=== PATIENT | female | born 1990 | race Caucasian/White ===

== ENCOUNTER 2018-03-23 09:45 | Emergency (ER) | payer OTHER ==
[~2018-03-23] VITALS: Ht 137.2 cm; Wt 102.1 kg
[2018-03-23] MEDS ORDERED: NEXIUM40 M1 PO (10:21)
[2018-03-23] MEDS ORDERED: METFORMIN HCL500 M3 PO (10:21)
[2018-03-23] MEDS ORDERED: RISPERIDONE1 M1 PO (10:22)
[2018-03-23] MEDS ORDERED: FLUOXETINE HCL20 M2 PO (10:22)
[2018-03-23] MEDS ORDERED: TRAZODONE HCL100 M1 PO (10:23)
[2018-03-23] MEDS ORDERED: RISPERDAL1 M1 PO (10:23)
[2018-03-23] MEDS ORDERED: MONTELUKAST SOD10 M1 PO (10:24)
[2018-03-23] MEDS ORDERED: PENTASA500 M1 PO (10:24)
[2018-03-23] MEDS ORDERED: MELOXICAM15 M1 PO (10:25)
[2018-03-23] MEDS ORDERED: DAILY MULTIPLE1 EACH PO (10:25)
[2018-03-23] MEDS ORDERED: CAL MAG ZINC +1 EACH PO (10:26)
[2018-03-23] MEDS ORDERED: MEDROXYPRO150 MG/11 IM (10:27)
[2018-03-23] MEDS ORDERED: DIVIGEL1 G1 TOP (10:27)
--- NOTE | 2018-03-23 12:46 | RADIOLOGY REPORT ---
EXAMINATION: CR LUMBOSACRAL SPINE. CR RIGHT HIP. CR LEFT HIP. CR LEFT KNEE. CR LEFT ANKLE. CLINICAL INFORMATION: Lower back pain after fall. Presumptive diagnosis of fracture. COMPARISON: None TECHNIQUE: Frontal and lateral views of the lumbar spine and lumbosacral junction. 2 views of the right hip. 2 views of the left hip. 4 views of the left knee. 4 views of the left ankle. FINDINGS: The obtained images are suboptimal due to difficulties with patient cooperation for standard positioning. Lumbosacral spine: The patient is status post posterior spinal decompression and fusion with posterior spinal fusion rods and transpedicular screws seen extending from the lower thoracic spine down to the S3 level with the cranial aspect not fully included. There are 6 lumbar-type nonrib-bearing vertebral bodies. Vertebral detail is limited due to extreme osteopenia. There is discontinuity of the fusion rods at the right L5 level and the left L5-6 level. There is diffuse osteopenia. Mild superior endplate compression deformities are seen at all levels in the lumbar spine, most prominent in the upper lumbar spine. The sacrum is obscured by overlapping stool and gas filled loops of bowel. Left hip: Diffuse osteopenia. No acute fracture or dislocation. No significant degenerative change. Right hip: Diffuse osteopenia. No definite acute fracture or dislocation. Extensive hypertrophic changes seen around the trochanters of the right hip and extending towards the right acetabular roof. Findings likely represent sequelae of previous trauma with secondary degenerative changes. No acute right hip fracture is seen. Left knee: Diffuse osteopenia. Evaluation limited due to nonstandard positioning, degree of osteopenia and overlapping soft tissues. No definite acute fracture or dislocation. No significant degenerative change. No suprapatellar knee joint effusion. Left ankle: There is osteopenia. No acute fracture or dislocation. Ankle mortise symmetric and intact. Overlying diffuse soft tissue swelling noted. IMPRESSION: 1. Limited films due to nonstandard positioning. 2. Diffuse osteopenia. 3. Multiple superior endplate compression deformities in the lumbar spine, likely long-standing. Clinical correlation requested. The patient is status post posterior spinal fusion with discontinuity of the spinal rods in the lower lumbar spine seen as discussed above. Correlation with patient's operative notes is requested. 4. No definite acute fractures of the left hip, left knee, and left ankle. Should symptoms persist, repeat imaging is recommended for reassessment. 5. Extensive hypertrophic changes around the right hip, most likely representing sequelae of previous injury. No definite acute fracture of the right hip.
[2018-03-23 15:48] LABS: ABSOLUTE BASOPHIL COUNT 0.1 /CUMM (0.0-0.2); ABSOLUTE EOSINOPHIL COUNT 0.6 /CUMM (0.0-0.7); ABSOLUTE LYMPH COUNT 3.6 /CUMM (1.2-3.4); ABSOLUTE MONOCYTE COUNT 0.4 /CUMM (0.10-0.60); BASOPHIL % 0.6 % (0.0-2.0); GRANULOCYTE % 59.8 % (42.2-75.2); HEMATOCRIT 38.2 % (37-47); MEAN CORPUSCULAR HGB 28.5 PG (27.0-31.0); MEAN CORPUSCULAR HGB CONC 32.4 G/DL (33.0-37.0); MEAN CORPUSCULAR VOLUME 87.9 FL (81.0-99.0); MEAN PLATELET VOLUME 9.1 FL (7.4-10.4); PLATELET COUNT 257 /CUMM (130-400); RBC DISTRIBUTION WIDTH 15.3 % (11.5-14.5); RED BLOOD CELL CT 4.34 /CUMM (4.20-5.40); WHITE BLOOD CELL COUNT 11.7 /CUMM (4.8-10.8)
--- NOTE | 2018-03-23 16:21 | ED GENERAL ADULT ---
See Addendum History of Present Illness General Chief Complaint: General Adult Stated Complaint: BIBA FOR UNABLE TO AMBULATE Source: patient Exam Limitations: no limitations Vital Signs & Intake/Output Vital Signs & Intake/Output Vital Signs Date Time Temp Pulse Resp B/P B/P Pulse O2 O2 Flow FiO2 Mean Ox Delivery Rate 03/24 1427 99.9 109 18 131/56 91 Room Air 03/24 1346 Room Air 03/24 0645 99.2 75 18 108/59 98 Room Air 03/23 2327 100 19 90 Room Air 03/23 2230 89 18 100/57 97 Room Air 03/23 2011 97 18 118/78 95 Room Air ED Intake and Output 03/24 0000 03/23 1200 Intake Total 0 Output Total Balance 0 Intake, Oral 0 Patient 225 lb Weight Weight Reported by Patient Measurement Method Allergies Coded Allergies: Sulfa (Sulfonamide Antibiotics) (UNKNOWN 03/23/18) egg (UNKNOWN 03/23/18) peanut (UNKNOWN 03/23/18) wheat (UNKNOWN 03/23/18) Reconcile Medications Calcium Carb/D3/Magnesium/Zinc (Víctor Mag Zinc + D Tablet) 333MG-133 TABLET 1 TAB PO DAILY VITAMIN SUPPORT (Reported) Esomeprazole (Nexium) 40 MG CAPSULE.DR 1 CAP PO BID GI (Reported) Estradiol (Divigel) 1 MG/GRAM (0.1 %) GEL.PACKET 1 PAC TOP DAILY HORMONE ( Reported) Fluoxetine HCl 20 MG CAPSULE 3 CAP PO DAILY MENTAL HEALTH (Reported) Medroxyprogesterone Acetate 150 MG/ML SYRINGE 1 ML IM Q3M HORMONE (Reported) Meloxicam 15 MG TABLET 1 TAB PO DAILY PAIN (Reported) Mesalamine (Pentasa) 500 MG CAPSULE.ER 1 TAB PO BID UNKNOWN (Reported) Metformin HCl 500 MG TABLET 1 TAB PO BID DIABETES (Reported) Montelukast Sodium 10 MG TABLET 1 TAB PO DAILY ALLERGIES (Reported) Multivitamin (Daily Multiple Vitamin) 1 EACH TABLET 1 TAB PO DAILY VITAMIN SUPPORT (Reported) Risperidone 1 MG TABLET 1.5 TAB PO QPM MENTAL HEALTH (Reported) Risperidone (Risperdal) 1 MG TABLET 0.5 TAB PO DAILY MENTAL HEALTH (Reported) Trazodone HCl 100 MG TABLET 1 TAB PO QPM SLEEP (Reported) Triage Note: BIBA FROM HOME, S/P FALL YESTERDAY. MOTHER STATES SHE WAS ASSISTING PT TO WHEELCHAIR YESTERDAY, PT SLIPPED AND WAS LOWERED TO GROUND, TODAY UNABLE TO GETT OOB OR BARE WEIGHT. PMH: PRADER-LORENA SYNDROME, LEGALLY BLIND. AWAKE WITH UNTERMITTANT YELLING. MOTHER IS CAREGIVER, STATES BASELINE. ? PAIN IN HIPS. SLIPPED AND FELL, REPORTS Triage Nurses Notes Reviewed? yes Onset: Abrupt Duration: day(s): (1), constant, continues in ED Timing: single episode today Injury Environment: home Severity: moderate, severe Severity Numbers: 7 No Modifying Factors: none LMP (ages 10-50): unknown : No Patient currently breastfeeds: No HPI: 27-year-old female history of PRADER WILLI syndrome presents for evaluation of unable to ambulate. Patient is essentially nonverbal at baseline she normally is able to WALK with assistance and is able to stand and PIVOT. Yesterday while transferring from the bath to the chair patient suddenly developed pain in her left foot and had to be lowered to the ground. There was no direct fall or trauma. This was witnessed by her mother who lowered her to the ground. No head strike. Since then patient has refused to ambulate. She is also not even able to stand. She is not complaining of any pain in one particular area. No fevers no belly pain. She does have chronic back pain status post surgeries. According to the mother who is at bedside her mental status is at baseline. (Dmitriy Kumar) Past History Travel History Traveled to [place] past 21 day No Medical History Any Pertinent Medical History? 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 No (Dmitriy Kumar) Review of Systems Review of Systems Constitutional: Reports: no symptoms. EENTM: Reports: no symptoms. Respiratory: Reports: no symptoms. Cardiovascular: Reports: no symptoms. GI: Reports: no symptoms. Genitourinary: Reports: no symptoms. Musculoskeletal: Reports: back pain, joint pain, muscle pain, muscle stiffness. Skin: Reports: no symptoms. Neurological/Psychological: Reports: no symptoms. Hematologic/Endocrine: Reports: no symptoms. Immunologic/Allergic: Reports: no symptoms. All Other Systems: Reviewed and Negative (Dmitriy Kumar) Physical Exam Physical Exam General Appearance: well developed/nourished, no apparent distress, alert, awake , obese Head: atraumatic, normal appearance Eyes: Bilateral: normal appearance, PERRL, EOMI. Ears, Nose, Throat: hearing grossly normal Neck: normal inspection, supple, full range of motion, no midline tenderness Respiratory: normal breath sounds, chest non-tender, no respiratory distress, lungs clear Cardiovascular: regular rate/rhythm, normal peripheral pulses Peripheral Pulses: 2+ radial (R), 2+ radial (L) Gastrointestinal: soft, non-tender Back: normal inspection, normal range of motion, no vertebral tenderness Extremities: PATIENT IS MOVING ALL ACTIVITIES EQUALLY NO JOINT SWELLING OR PAIN NO TENDERNESS TO PALPATION OF THE BILATERAL HIPS BILATERAL KNEES BILATERAL ANKLES BILATERAL FEET. nO TENDERNESS OF THE UPPER EXTREMITIES, NEUROVASCULAR SUPPLY INTACT Neurologic/Psych: no motor/sensory deficits, awake, alert, PATIENT IS NONVERBAL Skin: intact, normal color, warm/dry Lymphatic: no anterior cervical leo Core Measures ACS in differential dx? No CVA/TIA Diagnosis: No Sepsis Present: No Sepsis Focused Exam Completed? No (Dmitriy Kumar) Progress Differential Diagnoses I considered the following diagnoses in my evaluation of the patient: [Fracture, contusion, sprain, sepsis, UTI] Plan of Care: Orders Procedure Date/time Status Regular Diet 03/24 D Active Regular Diet 03/24 B Complete XRY-PORTABLE CHEST XRAY 03/24 1554 Active PT Evaluate & Treat 03/24 0721 Active CASE MANAGEMENT CONSULT 03/24 0721 Active Theraputic Activities 15 Min 03/24 UNK Complete MOBILITY GOAL STATUS 03/24 UNK Complete MOBILITY CURRENT STATUS 03/24 UNK Complete PT EVAL LOW COMPLEX 20 MIN 03/24 UNK Complete Current Medications Sig/Mary Start time Last Medication Dose Stop Time Status Admin Ibuprofen 400 MG TID PRN 03/24 0945 UNVr 03/24 (Motrin) 1130 Fluoxetine HCl 60 MG DAILY 03/24 09 UNVr 03/24 (Prozac) 0937 Montelukast Sodium 10 MG DAILY 03/24 0900 UNVr 03/24 (Singulair) 0937 Risperidone 0.5 MG DAILY 03/24 0900 UNVr 03/24 (Risperidone) 0937 Mesalamine 500 MG BID 03/23 2100 UNVr 03/24 (Pentasa) 0937 Metformin HCl 500 MG BID 03/23 2100 UNVr 03/24 (Glucophage) 936 Omeprazole 40 MG BID 03/23 2100 UNVr 03/24 (Prilosec) 936 Risperidone 1.5 MG QPM 03/23 2100 UNVr 03/23 (Risperidone) 1922 Trazodone HCl 100 MG QPM 03/23 2100 UNVr 03/23 (Desyrel) 192 Laboratory Tests 03/23/18 1645: Urine Color YEL, Urine Clarity CLEAR, Urine pH 7.5, Ur Specific [place] 1.015, Urine Protein NEG, Urine Ketones NEG, Urine Nitrite NEG, Urine Bilirubin NEG, Urine Urobilinogen 0.2, Ur Leukocyte Esterase NEG, Ur Microscopic EXAM NOT REQUIRED, Urine Hemoglobin NEG, Urine Glucose NEG Patient is here for evaluation of unable to ambulate. She had a possible fall/ injury yesterday while standing and pivoting. No direct signs of trauma on exam. X-rays of the bilateral hips left knee and left ankle and lumbar spine was ordered. Medical evaluation was also ordered. IMAGING IS NEGATIVE acute fracture. Patient does have multiple chronic compression fractures. BLOOD work and urinalysis are unremarkable. Attempted to stand and pivot the patient but she was unable to bear any weight. The patient's mother is elderly and is unable to care for her if she is unable to stand on her own. Patient will be In the emergency department overnight for physical therapy evaluation and possible placement tomorrow. Case discussed Dr. Verduzco agrees Diagnostic Imaging: Viewed by Me: Radiology Read. Discussed w/RAD: Radiology Read. Radiology Impression: PATIENT: PANCHITO ROBERTS PRESENT AGE: 27 PATIENT ACCOUNT NO: [id number] : 88 LOCATION: [facility] ORDERING PHYSICIAN: Dmitriy PEACE SERVICE DATE: 03/23/18 EXAM TYPE: RAD - XRY-ANKLE 3 OR MORE VIEWS L; XRY-HIP 2-3 VIEWS, LEFT; XRY-HIP 2-3 VIEWS, RIGHT ; XRY-KNEE COMPLETE LEFT; XRY-LUMBOSACRAL SPINE 4 VIEWS EXAMINATION: CR LUMBOSACRAL SPINE. CR RIGHT HIP. CR LEFT HIP. CR LEFT KNEE. CR LEFT ANKLE. CLINICAL INFORMATION: Lower back pain after fall. Presumptive diagnosis of fracture. COMPARISON: None TECHNIQUE: Frontal and lateral views of the lumbar spine and lumbosacral junction. 2 views of the right hip. 2 views of the left hip. 4 views of the left knee. 4 views of the left ankle. FINDINGS: The obtained images are suboptimal due to difficulties with patient cooperation for standard positioning. Lumbosacral spine: The patient is status post posterior spinal decompression and fusion with posterior spinal fusion rods and transpedicular screws seen extending from the lower thoracic spine down to the S3 level with the cranial aspect not fully included. There are 6 lumbar-type nonrib-bearing vertebral bodies. Vertebral detail is limited due to extreme osteopenia. There is discontinuity of the fusion rods at the right L5 level and the left L5-6 level. There is diffuse osteopenia. Mild superior endplate compression deformities are seen at all levels in the lumbar spine, most prominent in the upper lumbar spine. The sacrum is obscured by overlapping stool and gas filled loops of bowel. Left hip: Diffuse osteopenia. No acute fracture or dislocation. No significant degenerative change. Right hip: Diffuse osteopenia. No definite acute fracture or dislocation. Extensive hypertrophic changes seen around the trochanters of the right hip and extending towards the right acetabular roof. Findings likely represent sequelae of previous trauma with secondary degenerative changes. No acute right hip fracture is seen. Left knee: Diffuse osteopenia. Evaluation limited due to nonstandard positioning, degree of osteopenia and overlapping soft tissues. No definite acute fracture or dislocation. No significant degenerative change. No suprapatellar knee joint effusion. Left ankle: There is osteopenia. No acute fracture or dislocation. Ankle mortise symmetric and intact. Overlying diffuse soft tissue swelling noted. IMPRESSION: 1. Limited films due to nonstandard positioning. 2. Diffuse osteopenia. 3. Multiple superior endplate compression deformities in the lumbar spine, likely long-standing. Clinical correlation requested. The patient is status post posterior spinal fusion with discontinuity of the spinal rods in the lower lumbar spine seen as discussed above. Correlation with patient's operative notes is requested. 4. No definite acute fractures of the left hip, left knee, and left ankle. Should symptoms persist, repeat imaging is recommended for reassessment. 5. Extensive hypertrophic changes around the right hip, most likely representing sequelae of previous injury. No definite acute fracture of the right hip. DICTATED BY: Deo CHANG,Norma Bradley DATE/TIME DICTATED:03/23/181221 ADVERTISING ASSISTANT:CRISTIAN DATE/TIME TRANSCRIBED:03/23/18 / 1222 CONFIDENTIAL, DO NOT COPY WITHOUT APPROPRIATE AUTHORIZATION. <Electronically signed in Other Vendor System> SIGNED BY: Norma Desouza MD 03/23/18 1246 Initial ED EKG: none (Dmitriy Kumar) Hand-Off Endorsed To: Bebeto Vega MD Endorsed Time: 0700 Pending: consult (PT, CASE MANAGEMENT) (Dax CHANG,Lan Grullon) Hand-Off Endorsed To: Alex Sanchez MD Endorsed Time: 1614 Pending: consult, Xray Comments: Called to bedside due to low O2 sat monitor. Ms Roberts is not in any acute distress, negative for labored breathing or accessory muscle use, or signs of being short of breath. Negative for tachycardia, w/r/r, or signs of discomfort. (Bebeto Vega MD) Departure Departure Disposition: STILL A PATIENT Condition: Stable Clinical Impression Primary Impression: Gait instability Referrals: Brian Pickens MD (PCP/Family) Departure Forms: Customer Survey General Discharge Information (Dmitriy Kumar) PA/CHIEF DEPUTY Co-Sign Statement Statement: ED Attending supervision documentation- [X] I saw and evaluated the patient. I have also reviewed all the pertinent lab results and diagnostic results. I agree with the findings and the plan of care as documented in the PA's/CHIEF DEPUTY's documentation. [X] I have reviewed the ED Record and agree with the PA's/CHIEF DEPUTY's documentation. [] Additions or exceptions (if any) to the PAs/CHIEF DEPUTY's note and plan are summarized below: [] (Dax CHANG,Lan Grullon) Critical Care Note Critical Care Note Critical Care Time: non-applicable (Dmitriy Kumar)
--- NOTE | 2018-03-24 18:58 | RADIOLOGY REPORT ---
EXAMINATION: XR PORTABLE CHEST CLINICAL INFORMATION: Low O2 saturation. COMPARISON: None TECHNIQUE: Portable frontal view of the chest was obtained. 4:21 PM FINDINGS: Orthopedic rods present in the thoracic-lumbar spine. Lung volume is low. This causes crowding of the bronchovascular markings. Allowing for the low inspiratory effort there does not appear to be significant pulmonary vascular congestion. There is no focal consolidation. There is no pleural effusion and no pneumothorax. IMPRESSION: Low lung volume. No acute abnormality of the chest.
[2018-03-24 21:23] LABS: ABSOLUTE BASOPHIL COUNT 0.1 /CUMM (0.0-0.2); ABSOLUTE EOSINOPHIL COUNT 0.9 /CUMM (0.0-0.7); ABSOLUTE LYMPH COUNT 3.6 /CUMM (1.2-3.4); ABSOLUTE MONOCYTE COUNT 0.4 /CUMM (0.10-0.60); BASOPHIL % 0.7 % (0.0-2.0); EOSINOPHIL % 6.9 % (0-5); GRANULOCYTE % 60.1 % (42.2-75.2); HEMATOCRIT 37.7 % (37-47); MEAN CORPUSCULAR HGB 28.4 PG (27.0-31.0); MEAN CORPUSCULAR HGB CONC 32.5 G/DL (33.0-37.0); MEAN CORPUSCULAR VOLUME 87.3 FL (81.0-99.0); MEAN PLATELET VOLUME 9.6 FL (7.4-10.4); PLATELET COUNT 256 /CUMM (130-400); RBC DISTRIBUTION WIDTH 15.1 % (11.5-14.5); RED BLOOD CELL CT 4.32 /CUMM (4.20-5.40); WHITE BLOOD CELL COUNT 12.5 /CUMM (4.8-10.8)
[2018-03-24 21:30] LABS: ABSOLUTE GRANULOCYTE CT 7.5 /CUMM (1.4-6.5)
[2018-03-26 15:50] VITALS: BP 117/71
--- NOTE | 2018-03-26 16:00 | RADIOLOGY REPORT ---
EXAMINATION: XR KNEE, LEFT CLINICAL INFORMATION: Left knee pain. COMPARISON: None TECHNIQUE: Two views of the left knee. FINDINGS: There is no fracture. There is no dislocation. The femoral tibial joint and the patellofemoral joints are normal. There is no soft tissue calcification. There is no joint effusion. IMPRESSION: Normal left knee.
== END 2018-03-26 21:13 ==
LOC: ERH 09:45
PROVIDERS: Emergency Medicine; Physician Assistant Medical
DX: R26.81 Unsteadiness on feet (principal); Q87.1 Congenital malformation syndromes predominantly associated with short stature; M81.0 Age-related osteoporosis without current pathological fracture; E28.2 Polycystic ovarian syndrome
CPT/HCPCS: 71045; 72110; 73502-LT; 73502-RT; 73560-LT; 73562-LT; 73610-LT; 81003; 87040; 97161-GP; 97530-GP; G8978-GP; G8979-GP